=== PATIENT | male | born 1995 | race African-American/Black ===

== ENCOUNTER 2022-03-01 21:51 | Observation (INO) | payer OTHER ==
[2022-03-01] MEDS ORDERED: Ondansetron PF 4 MG/2 ML Vial ONE (22:31)
[2022-03-01 22:48] LABS: ALT (SGPT) 48 U/L (8-55); AST (SGOT) 48 U/L (5-34); Albumin 5.7 g/dL (3.5-5.0); Alkaline Phosphatase 47 U/L (40-110); Anion Gap 22 mmol/L (10-20); BUN (Urea Nitrogen) 20 mg/dL (8.9-20.6); Bilirubin, Total 1.5 mg/dL (0.2-1.2); CK (CPK) 966 U/L (30-200); Calc. Creatinine Clearance 0 mL/min (70-130); Calcium 11.4 mg/dL (7.8-10.44); Carbon Dioxide 25 mmol/L (22-29); Chloride 100 mmol/L (98-107); Estimated GFR 32; Globulin 3.6 g/dL (2.4-3.5); Glucose 110 mg/dL (70-105); Potassium 3.9 mmol/L (3.5-5.1); Protein, Total 9.3 g/dL (6.0-8.3); Sodium 143 mmol/L (136-145)
[2022-03-01 22:53] LABS: #Basophils 0.2 thou/uL (0.0-0.2); #Lymphocytes 1.1 thou/uL (1.20-3.40); #Monocytes 0.8 thou/uL (0.11-0.59); #Neutrophils 6.9 thou/uL (1.40-6.50); %Eosinophils 0.5 % (0.0-10.0); %Lymphocytes 12.1 % (21.0-51.0); %Monocytes 8.6 % (0.0-10.0); %Neutrophils 76.9 % (42.0-75.0); Mean Corpuscular HGB CONC 33.8 g/dL (32.0-36.0); Mean Corpuscular Volume 88.7 fL (78.0-98.0); Mean Platelet Volume 11.2 fL (7.4-10.4); Platelet Count 208 thou/uL (130-400); RBC Distribution Width 12.8 % (11.5-14.5); Red Blood Cell (RBC) Count 6.01 mill/uL (4.70-6.10)
[2022-03-01] MEDS ORDERED: Ondansetron ODT 4 MG TAB SL PRN (23:45)
[2022-03-01] MEDS ORDERED: Acetaminophen 325 MG TAB PO PRN (23:45)
[2022-03-01] MEDS ORDERED: Ondansetron PF 4 MG/2 ML Vial IVP PRN (23:45)
[2022-03-02 00:01] VITALS: BMI 30.3
[2022-03-02] MEDS: Sodium Chloride 0.9% 1,000 ML IV SCH ×3 (03:29→07:24)
[2022-03-02 05:50] LABS: Anion Gap 15 mmol/L (10-20)
[2022-03-02 06:31] LABS: ALT (SGPT) 35 U/L (8-55); AST (SGOT) 34 U/L (5-34); Albumin 4.6 g/dL (3.5-5.0); Alkaline Phosphatase 38 U/L (40-110); BUN (Urea Nitrogen) 18 mg/dL (8.9-20.6); Bilirubin, Total 1.4 mg/dL (0.2-1.2); CK (CPK) 793 U/L (30-200); Calc. Creatinine Clearance 73 mL/min (70-130); Calcium 9.5 mg/dL (7.8-10.44); Carbon Dioxide 27 mmol/L (22-29); Chloride 104 mmol/L (98-107); Estimated GFR 46; Globulin 3.2 g/dL (2.4-3.5); Glucose 107 mg/dL (70-105); Potassium 5.2 mmol/L (3.5-5.1); Protein, Total 7.8 g/dL (6.0-8.3); Sodium 141 mmol/L (136-145)
[2022-03-02] MEDS ORDERED: Levothyroxine Sodium 50 MCG TAB PO SCH (08:30)
[2022-03-02] MEDS ORDERED: Sodium Chloride 0.9% 1,000 ML IV SCH (11:45)
[2022-03-02 12:22] VITALS: BP 110/66
[2022-03-02 12:25] VITALS: TEMP 98
[2022-03-03] MEDS ORDERED: Levothyroxine Sodium 50 MCG TAB PO SCH (06:00)
== END 2022-03-02 14:45 | disposition home or self-care (01) ==
LOC: BURERS 21:51 → BURMED 23:27
PROVIDERS: ADMIT Family Medicine; ATTEND Family Medicine
DX: E86.0 Dehydration (principal); M62.82 Rhabdomyolysis; N17.9 Acute kidney failure, unspecified; E89.0 Postprocedural hypothyroidism; F12.10 Cannabis abuse, uncomplicated; Z79.890 Hormone replacement therapy; Z20.822 Contact with and (suspected) exposure to COVID-19
CPT/HCPCS: 36415; 80053; 82550; 85025; 96361; 96374; G0378; J2405; J7050; U0003; U0005